=== PATIENT | male | born 1960 | race Caucasian/White ===

== ENCOUNTER 2018-05-07 16:42 | Day surgery (SDC) | payer OTHER ==
[2018-05-07] MEDS ORDERED: CEFAZOLIN 1 GM INJ (19:46)
[2018-05-07] MEDS ORDERED: MEPERIDINE 100 MG INJ (19:46)
[2018-05-07] MEDS ORDERED: LIDOCAINE 2% (SDV) 5 ML INJ (19:46)
[2018-05-07] MEDS ORDERED: PROPOFOL 20 ML (19:46)
[2018-05-07] MEDS: POLYMYXIN B 500000 UNIT INJ ×2 (20:45→21:48)
[2018-05-07] MEDS: BACITRACIN 50000 UNITS INJ ×2 (20:45→21:48)
[2018-05-07] MEDS ORDERED: ONDANSETRON 4 MG INJ (21:19)
[2018-05-07] MEDS ORDERED: DEXAMETHASONE 4 MG/ML 1 ML INJ (21:19)
[2018-05-07] MEDS ORDERED: FENTAnyl 50 MCG/ML VIAL (21:19)
[2018-05-07] MEDS ORDERED: FENTAnyl 50 MCG/ML VIAL IV ×3 (22:00)
[2018-05-07] MEDS ORDERED: DIPHENHYDRAMINE 50 MG INJ IV (22:00)
[2018-05-07] MEDS ORDERED: MEPERIDINE 25 MG INJ IV (22:00)
[2018-05-07] MEDS ORDERED: HYDROmorphONE 1 MG/5 ML IV SYRINGE IV ×3 (22:00)
[2018-05-07] MEDS ORDERED: PROCHLORPERAZINE 10 MG INJ IV (22:00)
[2018-05-07] MEDS ORDERED: HYDROmorphONE 2 MG/ML SYG (22:09)
[2018-05-07] MEDS: ROPIVACAINE 0.5 % 30 ML VIAL (22:14)
[2018-05-07] MEDS: NEOMYC/POLYMYX/BACIT 30 GM OINT (22:15)
[2018-05-07] MEDS ORDERED: DIPHENHYDRAMINE 25 MG CAP PO (23:00)
[2018-05-07] MEDS ORDERED: ONDANSETRON 4 MG INJ IV (23:00)
[2018-05-07] MEDS ORDERED: morphine 10 MG INJ IV (23:00)
[2018-05-07] MEDS ORDERED: CEFAZOLIN 1 GM/50 ML (PMX) 50 ML IVPB (23:00)
[2018-05-07] MEDS ORDERED: CEFAZOLIN 1 GM INJ IV (23:00)
[2018-05-07] MEDS: ONDANSETRON 4 MG INJ IV (23:35)
[2018-05-07] MEDS: oxyCODONE 5 MG TAB PO (23:36)
== END 2018-05-08 | disposition home or self-care (01) ==
LOC: SDS 05-08
DX: S92.421D Displaced fracture of distal phalanx of right great toe, subsequent encounter for fracture with routine healing (principal); S92.531D Displaced fracture of distal phalanx of right lesser toe(s), subsequent encounter for fracture with routine healing; W22.8XXD Striking against or struck by other objects, subsequent encounter
CPT/HCPCS: 28495; 82306